=== PATIENT | male | born 1960 | race Caucasian/White ===

== ENCOUNTER 2023-04-13 13:18 | Emergency (ER) | payer OTHER, SELFPAY ==
[2023-04-13 13:18] VITALS: BP 136/85; PULSE 88; RESP 16; TEMP 36.4; O2SAT 98; BMI 26.6
[2023-04-13 13:28] VITALS: BP 130/90; PULSE 76; RESP 15; O2SAT 96
--- NOTE | 2023-04-13 13:34 | EKG12_ITS ---
Test Reason : SYNCOPE Blood Pressure : / mmHG Vent. Rate : 075 BPM Atrial Rate : 075 BPM P-R Int : 154 ms QRS Dur : 092 ms QT Int : 376 ms P-R-T Axes : 054 -27 036 degrees QTc Int : 419 ms Normal sinus rhythm Normal ECG Confirmed by Artis Jo ([id number]), online content editor EVE COONEY ([id number]) on 04/14/2023 9:27:47 AM Referred By: Confirmed By:Artis Jo
--- NOTE | 2023-04-13 13:34 | CT_ITS ---
STUDY: CT BRAIN WITHOUT CONTRAST REASON FOR EXAM: Male, 62 years old. Fall, syncope RADIATION DOSAGE (If Supplied By Facility): CTDIvol = ( 47.06 ) mGy, DLP = ( 925.62 ) mGy TECHNIQUE: Transaxial CT imaging of the brain was performed without administration of intravenous contrast material. Individualized dose optimization techniques were used for this CT. COMPARISON: No relevant priors. FINDINGS: Normal soft tissue structures. Normal calvarium. Normal size ventricles and extra-axial spaces for the patient''s age. Normal white matter tracts of the cerebral hemispheres. Normal basal ganglia and thalami. Normal brainstem. Normal cerebellum. There is no intracranial hemorrhage. There are no findings of an acute ischemic infarction. Normal visualized paranasal sinuses. CT/Brain/Head without Contrast IMPRESSION: Normal unenhanced CT scan of the brain. Electronically Signed: Roger Mark MD at 14:21 EST ,
--- NOTE | 2023-04-13 13:35 | EX.ED.DYSGE1 ---
HPI <JESSY Alvarez - Last Filed: 04/13/23 15:12> History of Present Illness Chief Complaint: Syncope Narrative Narrative: Patient presenting today due to a syncopal episode that occurred this afternoon. He reports that he was laying on the couch he decided to get up to get something out of the kitchen, he stood up quickly and felt lightheaded, he began to walk into the kitchen and felt like he was going to pass out and had a syncopal episode. He hit his forehead against the kitchen cabinet door. He is not on any blood thinners. He reports that over the past year he has felt intermittently lightheaded with standing from a laying or sitting position. He has never been tested for orthostatic hypotension but was told by his doctor that he probably has it. He denies any fevers, chills, chest pain, shortness of breath, abdominal pain, nausea, and vomiting. PFSH <JESSY Alvarez - Last Filed: 04/13/23 15:12> [facility] Home Medications NK 04/13/23 [History Last Taken Unknown] Allergy/AdvReac Type Severity Reaction Status Date / Time ethinyl estradiol Allergy Mild Other Verified 04/13/23 13:20 [From [place] (91)] levonorgestrel Allergy Mild Other Verified 04/13/23 13:20 [From [place] (91)] Social History Smoking Status: Never smoker ROS <JESSY Alvarez - Last Filed: 04/13/23 15:12> ROS ED Constitutional Constitutional ED: Denies chills or fever(s) Cardiovascular Cardiovascular: Denies chest pain or palpitations Respiratory/Chest Respiratory/Chest: Denies cough or dyspnea Gastrointestinal Gastrointestinal: Denies abdominal pain, nausea or vomiting Musculoskeletal Musculoskeletal: Denies arthralgias or myalgias Integumentary Denies rash Neurologic Neurologic: Denies headache(s) or weakness EXAM <JESSY Alvarez - Last Filed: 04/13/23 15:12> Physical Exam Const Vital Signs: 04/13/23 13:18 04/13/23 13:28 04/13/23 13:32 Temperature 97.5 F L Temperature Source Temporal Pulse Rate 88 76 Pulse Rate [Lying] Pulse Rate [Sitting (for 1 minute prior to obtaining)] Pulse Rate [Standing (for 1 minute prior to obtaining)] Respiratory Rate 16 15 Respiratory Effort Normal Non-Labored Respiratory Pattern Normal Blood Pressure 136/85 H 130/90 H Blood Pressure [Lying] Blood Pressure [Sitting (for 1 minute prior to obtaining)] Blood Pressure [Standing (for 1 minute prior to obtaining)] Blood Pressure Mean 102 103 Blood Pressure Mean [Lying] Blood Pressure Mean [Sitting (for 1 minute prior to obtaining)] Blood Pressure Mean [Standing (for 1 minute prior to obtaining)] Pulse Ox 98 96 Oxygen Delivery Method Room Air Room Air 04/13/23 13:45 Temperature Temperature Source Pulse Rate Pulse Rate [Lying] 76 Pulse Rate [Sitting (for 1 minute prior to obtaining)] 78 Pulse Rate [Standing (for 1 minute prior to obtaining)] 82 Respiratory Rate Respiratory Effort Respiratory Pattern Blood Pressure Blood Pressure [Lying] 118/82 H Blood Pressure [Sitting (for 1 minute prior to obtaining)] 125/87 H Blood Pressure [Standing (for 1 minute prior to obtaining)] 118/87 H Blood Pressure Mean Blood Pressure Mean [Lying] 94 Blood Pressure Mean [Sitting (for 1 minute prior to obtaining)] 99 Blood Pressure Mean [Standing (for 1 minute prior to obtaining)] 97 Pulse Ox Oxygen Delivery Method Positive well nourished, well developed and no apparent distress General Appearance ED: well developed HEENT Reports normocephalic and head/scalp atraumatic Mouth ED: Yes moist mucous membranes normal Eyes PERRL and EOMs intact bilaterally Neck full ROM and supple Chest Wall inspection of chest normal Resp normal respiratory effort and clear to auscultation bilaterally Cardio regular rate and regular rhythm GI soft to palpation, non-tender, non-distended and no masses Back/Spine normal ROM and normal to inspection Extremity normal to inspection and full ROM Neuro oriented x3, CN's II-XII intact bilaterally, moves all extremities, no focal motor deficits and no sensory deficits noted Sensorium / Orientation: awake and alert Psych mental status grossly normal and thought process normal Skin no rashes or lesions noted and no wounds <Dr. Rommel Hanks, DO - Last Filed: 04/13/23 15:18> Physical Exam Const Vital Signs: 04/13/23 13:18 04/13/23 13:28 04/13/23 13:32 Temperature 97.5 F L Temperature Source Temporal Pulse Rate 88 76 Pulse Rate [Lying] Pulse Rate [Sitting (for 1 minute prior to obtaining)] Pulse Rate [Standing (for 1 minute prior to obtaining)] Respiratory Rate 16 15 Respiratory Effort Normal Non-Labored Respiratory Pattern Normal Blood Pressure 136/85 H 130/90 H Blood Pressure [Lying] Blood Pressure [Sitting (for 1 minute prior to obtaining)] Blood Pressure [Standing (for 1 minute prior to obtaining)] Blood Pressure Mean 102 103 Blood Pressure Mean [Lying] Blood Pressure Mean [Sitting (for 1 minute prior to obtaining)] Blood Pressure Mean [Standing (for 1 minute prior to obtaining)] Pulse Ox 98 96 Oxygen Delivery Method Room Air Room Air 04/13/23 13:45 Temperature Temperature Source Pulse Rate Pulse Rate [Lying] 76 Pulse Rate [Sitting (for 1 minute prior to obtaining)] 78 Pulse Rate [Standing (for 1 minute prior to obtaining)] 82 Respiratory Rate Respiratory Effort Respiratory Pattern Blood Pressure Blood Pressure [Lying] 118/82 H Blood Pressure [Sitting (for 1 minute prior to obtaining)] 125/87 H Blood Pressure [Standing (for 1 minute prior to obtaining)] 118/87 H Blood Pressure Mean Blood Pressure Mean [Lying] 94 Blood Pressure Mean [Sitting (for 1 minute prior to obtaining)] 99 Blood Pressure Mean [Standing (for 1 minute prior to obtaining)] 97 Pulse Ox Oxygen Delivery Method [facility] <JESSY Alvarez - Last Filed: 04/13/23 15:12> [facility] Narrative Medical decision making narrative: Patient presenting due to syncopal episode that occurred earlier today. He was lying on the couch and stood up quickly and felt lightheaded and then passed out. He has had several episodes intermittently of feeling lightheaded when standing up quickly after a being in a laying position. This doctor told him he probably has orthostatic hypotension but did not test him for this. He is well-appearing and in no acute distress, his vitals unremarkable. Cardiac labs will be obtained to rule out ACS, leukocytosis, anemia, electrolyte abnormality, NICO. Chest x-ray will be obtained to rule out cardio or pulmonary abnormality. Head CT will be obtained to rule out intracranial abnormality. CBC, BMP, troponin overall are unremarkable. Chest x-ray and head CT negative for any acute findings. Orthostatic vital signs were negative. Encourage patient to follow-up with his PCP in the next 3 to 5 days and return for any worsening of his symptoms. He is comfortable with this plan. Lab Data Attestation: I reviewed the patient's lab results. Labs: Laboratory Results - last 24 hr 04/13/23 13:30 WBC 5.9 RBC 4.70 Hgb 14.9 Hct 43.6 MCV 92.8 MCH 31.7 MCHC 34.2 RDW Std Deviation 42.7 RDW Coeff of Mera 12.4 Plt Count 234 MPV 9.6 Immature Gran % (Auto) 0.500 Neut % (Auto) 70.3 H Lymph % (Auto) 20.0 [place] % (Auto) 7.1 Eos % (Auto) 1.4 Baso % (Auto) 0.7 Absolute Neuts (auto) 4.2 Absolute Lymphs (auto) 1.18 Nucleated RBC % 0 Sodium 142 Potassium 3.9 Chloride 110 H Carbon Dioxide 27.0 Anion Gap 5 BUN 19 H Creatinine 1.02 Estim Creat Clear Calc 83.77 Est GFR (MDRD) Af Amer 95 Est GFR (MDRD) Non-Af 78 BUN/Creatinine Ratio 18.6 Glucose 109 H Calcium 9.3 Troponin I High Sens 6 Radiography X-Ray: Read by ED Physician Diagnostic Testing: Clinical Impression(s) from Imaging Studies Brain CT 04/13/23 13:34 IMPRESSION: Normal unenhanced CT scan of the brain. Electronically Signed: Roger Mark MD at 14:21 EST , Chest X-Ray 04/13/23 13:59 IMPRESSION: Hyperinflation. The lungs are clear. Electronically Signed: Roger Mark MD at 14:10 EST , EKG Initial EKG: Comments: 75 bpm, normal sinus rhythm, no ST elevation, reviewed and interpreted by attending ED physician <Dr. Rommel Hanks, DO - Last Filed: 04/13/23 15:18> MDM MDM Narrative Medical decision making narrative: Patient presenting due to syncopal episode that occurred earlier today. He was lying on the couch and stood up quickly and felt lightheaded and then passed out. He has had several episodes intermittently of feeling lightheaded when standing up quickly after a being in a laying position. This doctor told him he probably has orthostatic hypotension but did not test him for this. He is well-appearing and in no acute distress, his vitals unremarkable. Cardiac labs will be obtained to rule out ACS, leukocytosis, anemia, electrolyte abnormality, NICO. Chest x-ray will be obtained to rule out cardio or pulmonary abnormality. Head CT will be obtained to rule out intracranial abnormality. CBC, BMP, troponin overall are unremarkable. Chest x-ray and head CT negative for any acute findings. Orthostatic vital signs were negative. Encourage patient to follow-up with his PCP in the next 3 to 5 days and return for any worsening of his symptoms. He is comfortable with this plan. This patient was seen with a PA/HOSPITAL WARD CLERK Individually assessed they patient including history and physical. I have reviewed everything on the chart that is available and agree with the documentation provided by the PA/HOSPITAL WARD CLERK including discussion about the assessment, treatment plan, discussion, and return precautions. Patient seen and evaluated for syncope. States he has a longstanding history of lightheadedness. States he is never passed out before. He has been close in the past. He states he was laying down and went to standing today and walked across the room and this is when he started to feel lightheaded. He grabbed the counter and states he fell over and hit his head on the door. Patient not on any blood thinners. Orthostatic vital signs were normal. Blood work ultimately within normal limits. EKG on my interpretation showed a sinus rhythm at 75 bpm outside ischemic change or dysrhythmia. Chest x-ray my interpretation shows no acute process. CT brain was negative. Patient ultimately feeling well. Is able to get up and ambulate to the bathroom. I discussed follow-up with his primary care provider. Precautions discussed. Impression: 1. Syncope 2. Closed head injury Lab Data Labs: Laboratory Results - last 24 hr 04/13/23 13:30 WBC 5.9 RBC 4.70 Hgb 14.9 Hct 43.6 MCV 92.8 MCH 31.7 MCHC 34.2 RDW Std Deviation 42.7 RDW Coeff of Mera 12.4 Plt Count 234 MPV 9.6 Immature Gran % (Auto) 0.500 Neut % (Auto) 70.3 H Lymph % (Auto) 20.0 [place] % (Auto) 7.1 Eos % (Auto) 1.4 Baso % (Auto) 0.7 Absolute Neuts (auto) 4.2 Absolute Lymphs (auto) 1.18 Nucleated RBC % 0 Sodium 142 Potassium 3.9 Chloride 110 H Carbon Dioxide 27.0 Anion Gap 5 BUN 19 H Creatinine 1.02 Estim Creat Clear Calc 83.77 Est GFR (MDRD) Af Amer 95 Est GFR (MDRD) Non-Af 78 BUN/Creatinine Ratio 18.6 Glucose 109 H Calcium 9.3 Troponin I High Sens 6 Radiography Diagnostic Testing: Clinical Impression(s) from Imaging Studies Brain CT 04/13/23 13:34 IMPRESSION: Normal unenhanced CT scan of the brain. Electronically Signed: Roger Mark MD at 14:21 EST , Chest X-Ray 04/13/23 13:59 IMPRESSION: Hyperinflation. The lungs are clear. Electronically Signed: Roger Mark MD at 14:10 EST , Discharge Plan Triage Chief Complaint: Syncope ED Midlevel Provider: Elena Armenta ED Provider: Rommel Hanks Dx/Rx/DC Orders Clinical Impression: Syncope Instructions: ED Hypotension, Orthostatic, ED Fainting, Uncertain Cause Prescriptions: No Action NK Primary Care Provider: Mariluz Tipton Referrals: Mariluz Tipton MD [Primary Care Provider] - 3-5 Days Activity Restrictions/Additional Instructions: Please follow-up with your PCP and return for any worsening of your symptoms. Disposition Disposition: Home, Self Care
[2023-04-13 13:45] VITALS: BP 118/82; BP 118/87; BP 125/87; PULSE 76; PULSE 78; PULSE 82
[2023-04-13 13:49] LABS: Absolute Lymphocyte Count 1.18 X10^3/uL (0.83-4.51); Absolute Neutrophil Count 4.2 X10^3/uL (2.0-7.7); Basophil# 0.04 X10^3/uL; Basophil% 0.7 % (0-1); Eosinophil# 0.08 X10^3/uL; Eosinophils% 1.4 % (0-5); Hematocrit 43.6 % (40-54); Hemoglobin 14.9 g/dL (13.0-16.5); Lymphocyte # 1.18 X10^3/ul (0.83-4.51); Mean Corp Hgb Conc 34.2 g/dL (32-36); Mean Corpuscular Hgb 31.7 pg (27.0-32.0); Mean Corpuscular Volume 92.8 fL (80-94); Mean Platelet Vol. 9.6 fl (6.2-12.0); Monocyte# 0.42 X10^3/uL; Monocyte% 7.1 % (0-10); NRBC Flagged by Analyzer 0 % (0-5); Neutrophil # 4.16 X10^3/uL (2.7-7.7); Neutrophil % 70.3 % (47-70); Platelet Count 234 K/mm3 (150-450); RBC Distribution Width CV 12.4 % (11.6-14.6); RBC Distribution Width SD 42.7 fl (35.1-43.9); White Blood Count 5.9 K/mm3 (4.4-11.0)
--- NOTE | 2023-04-13 13:59 | RAD_ITS ---
STUDY: X-RAY CHEST REASON FOR EXAM: Male, 62 years old. Chest pain TECHNIQUE: Single AP portable view of the chest. COMPARISON: None. FINDINGS: EKG electrodes are seen. Hyperinflation. The lungs are clear. There is no demonstrated pleural abnormality. Normal size heart. Normal mediastinum and felix. Normal visualized pulmonary arteries. Normal visualized aortic arch and descending thoracic aorta. Normal visualized thoracic spine. Normal visualized ribs, clavicles, and shoulders. There is no demonstrated abnormality of the visualized soft tissue structures of the upper abdomen. RAD/Chest 1 View (Portable) IMPRESSION: Hyperinflation. The lungs are clear. Electronically Signed: Roger Mark MD at 14:10 EST ,
[2023-04-13 14:10] LABS: Anion Gap 5 (5-15); BUN 19 mg/dL (7-18); BUN/Creat Ratio 18.6 RATIO (10-20); Calcium,Total 9.3 mg/dL (8.5-10.1); Chloride 110 mmol/L (98-107); Creatinine, Serum 1.02 mg/dL (0.70-1.30); EST Glomerular Filtration Rate 78 mL/min (>60); Est Glom Filt Rate - Afr Amer 95 mL/min (>60); Estimated Creatinine Clearance 83.77 ml/min; Glucose 109 mg/dL (74-106); Potassium 3.9 mmol/L (3.5-5.1); Sodium Level 142 mmol/L (136-145); Troponin-I HS (w/2H Reflex) 6 pg/mL (3.0-78.0)
[2023-04-13 15:18] VITALS: BP 126/77; PULSE 67; RESP 15; O2SAT 98
[2023-04-13 15:45] LABS: Reflex Troponin-HS? (from REC) Y
--- NOTE | 2023-04-13 17:03 | EX.ED.DYSGE1 ---
HPI History of Present Illness Chief Complaint: [facility] Home Medications NK 04/13/23 [History Last Taken Unknown] Allergy/AdvReac Type Severity Reaction Status Date / Time ethinyl estradiol Allergy Mild Other Verified 04/13/23 13:20 [From ()] levonorgestrel Allergy Mild Other Verified 04/13/23 13:20 [From ()] Social History Smoking Status: Never smoker EXAM Physical Exam Const Vital Signs: 04/13/23 13:18 04/13/23 13:28 04/13/23 13:32 Temperature 97.5 F L Temperature Source Temporal Pulse Rate 88 76 Pulse Rate [Lying] Pulse Rate [Sitting (for 1 minute prior to obtaining)] Pulse Rate [Standing (for 1 minute prior to obtaining)] Respiratory Rate 16 15 Respiratory Effort Normal Non-Labored Respiratory Pattern Normal Blood Pressure 136/85 H 130/90 H Blood Pressure [Lying] Blood Pressure [Sitting (for 1 minute prior to obtaining)] Blood Pressure [Standing (for 1 minute prior to obtaining)] Blood Pressure Mean 102 103 Blood Pressure Mean [Lying] Blood Pressure Mean [Sitting (for 1 minute prior to obtaining)] Blood Pressure Mean [Standing (for 1 minute prior to obtaining)] Pulse Ox 98 96 Oxygen Delivery Method Room Air Room Air 04/13/23 13:45 04/13/23 15:18 Temperature Temperature Source Pulse Rate 67 Pulse Rate [Lying] 76 Pulse Rate [Sitting (for 1 minute prior to obtaining)] 78 Pulse Rate [Standing (for 1 minute prior to obtaining)] 82 Respiratory Rate 15 Respiratory Effort Respiratory Pattern Blood Pressure 126/77 H Blood Pressure [Lying] 118/82 H Blood Pressure [Sitting (for 1 minute prior to obtaining)] 125/87 H Blood Pressure [Standing (for 1 minute prior to obtaining)] 118/87 H Blood Pressure Mean 93 Blood Pressure Mean [Lying] 94 Blood Pressure Mean [Sitting (for 1 minute prior to obtaining)] 99 Blood Pressure Mean [Standing (for 1 minute prior to obtaining)] 97 Pulse Ox 98 Oxygen Delivery Method [facility] Lab Data Labs: Laboratory Results - last 24 hr 04/13/23 13:30 WBC 5.9 RBC 4.70 Hgb 14.9 Hct 43.6 MCV 92.8 MCH 31.7 MCHC 34.2 RDW Std Deviation 42.7 RDW Coeff of Mera 12.4 Plt Count 234 MPV 9.6 Immature Gran % (Auto) 0.500 Neut % (Auto) 70.3 H Lymph % (Auto) 20.0 [place] % (Auto) 7.1 Eos % (Auto) 1.4 Baso % (Auto) 0.7 Absolute Neuts (auto) 4.2 Absolute Lymphs (auto) 1.18 Nucleated RBC % 0 Sodium 142 Potassium 3.9 Chloride 110 H Carbon Dioxide 27.0 Anion Gap 5 BUN 19 H Creatinine 1.02 Estim Creat Clear Calc 83.77 Est GFR (MDRD) Af Amer 95 Est GFR (MDRD) Non-Af 78 BUN/Creatinine Ratio 18.6 Glucose 109 H Calcium 9.3 Troponin I High Sens 6 Radiography X-Ray: Read by ED Physician Diagnostic Testing: Clinical Impression(s) from Imaging Studies Brain CT 04/13/23 13:34 IMPRESSION: Normal unenhanced CT scan of the brain. Electronically Signed: Roger Mark MD at 14:21 EST , Chest X-Ray 04/13/23 13:59 IMPRESSION: Hyperinflation. The lungs are clear. Electronically Signed: Roger Mark MD at 14:10 EST , EKG Initial EKG: Comments: 75 bpm, normal sinus rhythm, no ST elevation, reviewed and interpreted by attending ED physician Discharge Plan Triage Chief Complaint: Syncope ED Midlevel Provider: Elena Armenta ED Provider: Rommel Hanks Dx/Rx/DC Orders Clinical Impression: Syncope Instructions: ED Hypotension, Orthostatic, ED Fainting, Uncertain Cause Prescriptions: No Action NK Primary Care Provider: Mariluz Tipton Referrals: Mariluz Tipton MD [Primary Care Provider] - 3-5 Days Activity Restrictions/Additional Instructions: Please follow-up with your PCP and return for any worsening of your symptoms. Disposition Disposition: Home, Self Care Discharge Date/Time: 04/13/23 15:20
== END 2023-04-13 15:20 | disposition home or self-care (01) ==
PROVIDERS: Physician Assistant; Emergency Provider Student in an Organized Health Care Education/Training Program; PCP Internal Medicine; Visit Provider Student in an Organized Health Care Education/Training Program
DX: R55 Syncope and collapse (principal); S09.90XA Unspecified injury of head, initial encounter; X58.XXXA Exposure to other specified factors, initial encounter; Y93.89 Activity, other specified
CPT/HCPCS: 70450; 71045; 80048; 84484; 85025; 93005; 99285

== ENCOUNTER → 2025-01-10 | Outpatient (CLI) | payer SELFPAY | END | disposition home or self-care (01) | PROVIDERS: PCP Internal Medicine; Referring Provider Internal Medicine; Visit Provider Internal Medicine | DX: E66.3 Overweight (principal) | CPT/HCPCS: 76499 ==